=== PATIENT | female | born 1950 | race Caucasian/White ===

== ENCOUNTER 2023-12-09 08:33 | Outpatient (REF) | payer MEDICARE, SELFPAY ==
--- NOTE | ~2023-12-09 | XR_ITS ---
EXAMINATION: XR LUMBOSACRAL SPINE WITH OBLIQUES CLINICAL INFORMATION: Spondylolisthesis COMPARISON: None available. TECHNIQUE: AP, lateral neutral, flexion and extension views of the lumbar spine. FINDINGS: The bones are diffusely demineralized. Degenerative changes in the imaged lower thoracic spine. Advanced facet arthritis in the mid to lower lumbar spine. Grade 1 anterolisthesis of L4 on L5 persists on flexion and extension views. Multilevel lumbar spondylosis with multilevel loss of disc space height. Metallic devices overlie the pelvis and recommend correlation with clinical exam to confirm correlation with clothes overlying. XR/XR lumbar spine 4V min IMPRESSION: 1. Multilevel lumbar spondylosis with multilevel loss of disc space height. 2. Grade 1 anterolisthesis of L4 on L5 persists on flexion and extension views.
== END 2023-12-09 08:34 | disposition home or self-care (01) ==
LOC: HO.HOSX 08:33
PROVIDERS: PCP Nurse Practitioner Family; Visit Provider Neurological Surgery
DX: M54.16 Radiculopathy, lumbar region (principal); M43.16 Spondylolisthesis, lumbar region
CPT/HCPCS: 72110; 99202

== ENCOUNTER 2023-12-09 08:33 | Outpatient (AMB) | payer MEDICARE, SELFPAY ==
--- NOTE | 2023-12-09 08:59 | HO.SPINEOV ---
Intake Intake Visit Reasons: Radiculopathy, lumbar region Intake Note: Ms. Chong is here today c/o Low back pain. 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 HPI: The patient developed progressive, severe back pain across the lumbar spine with radiation down her right hip and to the front of her lower leg. The pain is associated with intermittent numbness on the top of her right foot. The pain increases with walking and standing. The pain is also increased in the morning when she wakes up. She has adjusted her lifestyle activities. She used to be very active in the form of long walks and gardening. Currently, she significantly reduced her activities. She is takes anti-inflammatory and Tylenol twice a day. She underwent cortisone injection and extensive physical therapy without success. She denies weakness. She denies pain in her left leg. PMH: Osteopenia, depression, anxiety, narrowing of the esophagus, GERD Medications: Effexor, Wellbutrin, simvastatin, famotidine, calcium, vitamin-E, Prolia Allergies: Penicillin Social history: Lives with partner. Nonsmoker Physical Exam: Pleasant female. Neurological exam shows no deficits from motor sensation reflexes. Straight leg raise is negative. Radiological Studies: MRI done at [facility] on 02/13/2023 shows a grade 2 L4-5 spondylolisthesis and a grade 1 L3-4 spondylolisthesis causing severe L4 and L3 foraminal stenosis on the right side in addition to central stenosis. A standing lumbar x-ray today shows a lumbar degenerative scoliosis with the apex at L3-L4 and the lumbar spondylolisthesis. Impression/Plan: This 73-year-old female is suffering from axial low back pain and unilateral lumbar radiculopathy, right side due to a grade 2 L4-5 spondylolisthesis and a grade 1 L3-4 spondylolisthesis causing severe right L3 and L4 foraminal narrowing and spinal stenosis. On top of that there is a lumbar degenerative scoliosis. We had an extensive discussion about treatment options. Unfortunately, a simple decompression in the form of foraminotomy would not provide long-lasting results a due to the scoliotic component and the risk of advancing the spondylolisthesis. The best option would be a3 level lumbar fusion L2-3, L3-4 and L4-5 through an oblique lumbar interbody fusion. I described the procedure complications to the patient's and she wants to proceed. She will be scheduled for June 21. She will obtain preoperative clearance from her primary care physician. Thank you for allowing me to participate in your patients care. total time spent was 50 minutes in counseling ,coordination of plan, personal review of imaging, surgical decision making and subsequent plan García Escudero MD, PhD Sp[facility] Trained Neurosurgeon Director, [facility] (2) Spondylolisthesis, lumbar region: Code(s): M43.16 - Spondylolisthesis, lumbar region Plan f Orders: Orders XR lumbar spine 4V min Today M43.16 - Spondylolisthesis, lumbar region, M54.16 - Radiculopathy, lumbar region Coding Level of Care Code New Pt Level 4 (72034) Diagnoses Lumbar radiculopathy, right M54.16 Spondylolisthesis, lumbar region M43.16
== END 2023-12-09 10:11 | disposition home or self-care (01) ==
PROVIDERS: PCP Nurse Practitioner Family; Referring Provider Student in an Organized Health Care Education/Training Program; Visit Provider Neurological Surgery
DX: M54.16 Radiculopathy, lumbar region (principal); M43.16 Spondylolisthesis, lumbar region
CPT/HCPCS: 99204